=== PATIENT | male | born 1970 | race Caucasian/White ===

== ENCOUNTER 2017-08-18 16:14 | Emergency (ER) | payer BC, OTHER ==
[~2017-08-18] VITALS: Ht 172.7 cm; Wt 95.0 kg
[2017-08-18 16:19] VITALS: Ht 172.7 cm; Wt 95.0 kg
[2017-08-18] MEDS ORDERED: MAGNESIUM SULFATE 2 GM, MULTIVITAMINS 10 ML, THIAMINE 100 MG, FOLIC ACID 1 MG in SOD CH... IV STA (16:38)
[2017-08-18 17:36] LABS: BASOPHILS % 0.8 % (0.0-2.0); EOSINOPHILS % 0.8 % (0.0-7.0); HEMATOCRIT 44.8 % (42.0-52.0); LYMPHOCYTES % 38.3 % (15.0-51.0); MEAN CORPUSCULAR HEMOGLOBIN 30.1 pg (29.0-33.0); MEAN CORPUSCULAR HGB CONC 33.5 g/dl (32.0-37.0); MEAN PLATELET VOLUME 9.9 fl (7.4-10.4); MONOCYTE # 0.3 10^3/ul (0.3-0.9); MONOCYTES % 5.5 % (0.0-11.0); NEUTROPHIL # 2.9 10^3/ul (1.6-7.5); NEUTROPHILS % 54.4 % (39.0-77.0); PLATELET COUNT 243 10^3/UL (140-415); RED BLOOD COUNT 4.98 10^6/ul (4.70-6.10); RED CELL DISTRIBUTION WIDTH 12.7 % (11.5-14.5); WHITE BLOOD COUNT 5.3 10^3/ul (4.8-10.8)
[2017-08-18 17:42] LABS: ADD UMIC YES; UR ASCORBIC ACID NEGATIVE (NEGATIVE); UR BILIRUBIN (Dip) NEGATIVE (NEGATIVE); UR BLOOD (Dip) 1+ mg/dL (NEGATIVE); UR CLARITY CLEAR (CLEAR); UR COLOR STRAW (YELLOW); UR GLUCOSE (Dip) NEGATIVE (NEGATIVE); UR KETONES (Dip) NEGATIVE (NEGATIVE); UR LEUKOCYTE ESTERASE (Dip) NEGATIVE Leu/ul (NEGATIVE); UR NITRITE (Dip) NEGATIVE (NEGATIVE); UR RBC 0 /HPF (0-5); UR SPECIFIC GRAVITY (Dip) 1.004 (1.003-1.030); UR TOTAL PROTEIN (Dip) NEGATIVE (NEGATIVE); UR UROBILINOGEN (Dip) NEGATIVE (NEGATIVE)
--- NOTE | 2017-08-18 17:55 | ERD ---
ER Documentation Chief Complaint Chief Complaint BIBA FOR ALCOHOL INTOXICATION HPI This is a 47-year-old male that was brought into the emergency department for alcohol intoxication. The patient stated over the past 24 hours he has been consuming a significant amount of alcohol and does have a history of alcohol abuse. He states he is going through significant amount of stress right now he is in the process of a divorce. He denies any recent remote blunt or penetrating head chest or abdominal trauma. He denies headache. He denies changes in vision. He denies any hemoptysis hematemesis or melanotic stools. He denies any suicidal homicidal thoughts or ideations. ROS All systems reviewed and are negative except as per history of present illness. Allergies Allergies: Coded Allergies: No Known Allergy (Verified , 07/08/09) PMhx/Soc History of Surgery: No Anesthesia Reaction: No Hx Neurological Disorder: No Hx Respiratory Disorders: No Hx Cardiac Disorders: No Hx Psychiatric Problems: No Hx Miscellaneous Medical Probl: No Hx Alcohol Use: Yes Hx Substance Use: No Hx Tobacco Use: No Smoking Status: Never smoker Physical Exam Vitals Vital Signs Date Time Temp Pulse Resp B/P Pulse Ox O2 Delivery O2 Flow Rate FiO2 08/18/17 16:19 98.9 100 16 150/80 98 Physical Exam Constitutional:Well-developed. Well-nourished. HEENT:Normocephalic. Atraumatic.Pupils were equal round reactive to light. Moist mucous membranes.No tonsillar exudates. Neck: No nuchal rigidity. No lymphadenopathy. No posterior cervical spine tenderness or step-offs. Respiratory: Not using accessory muscles of respiration.Lungs were clear to auscultation bilaterally. No rhonchi. No rales. No wheezing. Cardiovascular: Regular rate regular rhythm.No murmurs. No rubs were appreciated.S1, S2 normal. Distal pulses are palpable 2+ bilaterally. GI: Abdomen was soft. Nontender. Non Distended. No pulsatile abdominal masses or bruits. No rebound. No guarding. Bowel sounds were present and normal. Muscle skeletal: Full range of motion of both the upper and lower extremities bilaterally.Normal muscle tone.No assymetrical calf tenderness or swelling. Skin: No petechia, no purpura. No lesions on the palms or the soles of the feet. No maculopapular rash. NEURO: Patient was alert, awake, orientated x3.No facial droop. Gait observed and normal with no ataxia.Speech is slurred and patient smelled of alcohol. No focal neurological deficits. Result Diagram: 08/18/17 1700 08/18/17 170 Results 24 hrs Laboratory Tests Test 08/18/17 17:00 White Blood Count 5.310^3/ul Red Blood Count 4.9810^6/ul Hemoglobin 15.0g/dl Hematocrit 44.8% Mean Corpuscular Volume 90.0fl Mean Corpuscular Hemoglobin 30.1pg Mean Corpuscular Hemoglobin Concent 33.5g/dl Red Cell Distribution Width 12.7% Platelet Count 32492^3/UL Mean Platelet Volume 9.9fl Neutrophils % 54.4% Lymphocytes % 38.3% Monocytes % 5.5% Eosinophils % 0.8% Basophils % 0.8% Nucleated Red Blood Cells % 0.0/100WBC Neutrophils # 2.910^3/ul Lymphocytes # 2.010^3/ul Monocytes # 0.310^3/ul Eosinophils # 0.010^3/ul Basophils # 0.010^3/ul Nucleated Red Blood Cells # 0.010^3/ul Urine Color STRAW Urine Clarity CLEAR Urine pH 6.[address] [place] [address] 1.004 Urine Ketones NEGATIVEmg/dL Urine Nitrite NEGATIVEmg/dL Urine Bilirubin NEGATIVEmg/dL Urine Urobilinogen NEGATIVEmg/dL Urine Leukocyte Esterase NEGATIVELeu/ul Urine Microscopic RBC 0/HPF Urine Microscopic WBC 0/HPF Urine Hemoglobin 1+mg/dL Urine Glucose NEGATIVEmg/dL Urine Total Protein NEGATIVEmg/dl Sodium Level 148mmol/L Potassium Level 3.9mmol/L Chloride Level 109mmol/L Carbon Dioxide Level 23mmol/L Anion Gap 20 Blood Urea Nitrogen 9mg/dl Creatinine 0.75mg/dl Glucose Level 102mg/dl Calcium Level 9.0mg/dl Total Bilirubin 0.1mg/dl Direct Bilirubin 0.00mg/dl Indirect Bilirubin 0.1mg/dl Aspartate Amino Transf (AST/SGOT) 76IU/L Alanine Aminotransferase (ALT/SGPT) 66IU/L Alkaline Phosphatase 125IU/L Total Protein 7.8g/dl Albumin 4.5g/dl Globulin 3.30g/dl Albumin/Globulin Ratio 1.36 Salicylates Level < 1.0mg/dl Urine Opiates Screen Negative Acetaminophen Level < 10.0ug/ml Urine Barbiturates Negative Urine Amphetamines Screen POSITIVE Urine Benzodiazepines Screen Negative Urine Cocaine Screen Negative Urine Cannabinoids Negative Ethyl Alcohol Level 375.0mg/dl Current Medications Medications (Trade) Dose Ordered Sig/Abhi Route PRN Reason Start Time Stop Time Status Last Admin Dose Admin Magnesium Sulfate/ Multivitamins/ Thiamine HCl/ Folic Acid/Sodium Chloride (Magnesium Sulfate/Mvi Adult/ Vitamin B1/Folic Acid/NS) 1,015.2 ml @ 500 mls/ hr Q2H2M STAT IV 08/18/17 16:38 08/18/17 18:39 DC 08/18/17 17:39 Lorazepam (Ativan) 1 mg ONCE ONCE IV 08/18/17 19:00 08/18/17 19:01 DC 08/18/17 18:49 Procedures/MDM This patient presented to the emergency department with acute alcohol intoxication. IV access was essentially nursing staff and the patient received a banana bag replenish thiamine and multivitamin and folic acid. Observation Note: Time: 6 hours Family Hx: No Hypertension Evaluation: Multiple exams showed improving symptoms and no evidence of any delirium tremors. His serum ethanol had been elevated but he remained in the emergency department until clinical sobriety. His stroke scale was also positive for amphetamines. During his observation stay the patient did have an episode where he became very belligerent and verbal de-escalation was unable to calm the patient down. Therefore he received IV Ativan. Upon clinical sobriety tree the patient denied any suicidal homicidal thoughts or ideations Departure Diagnosis: Primary Impression: Alcoholic intoxication Complication of substance-induced condition: uncomplicated Qualified Code: F10.920 - Alcoholic intoxication without complication Additional Impression: Amphetamine abuse Condition: ESVIN Cintron Aug 18, 2017 17:55
[2017-08-18 18:01] LABS: ALANINE AMINOTRANSFERASE 66 IU/L (13-69); ALBUMIN 4.5 g/dl (3.3-4.9); ALBUMIN/GLOBULIN RATIO 1.36; ALKALINE PHOSPHATASE 125 IU/L (42-121); ANION GAP 20 (8-16); ASPARTATE AMINO TRANSFERASE 76 IU/L (15-46); BILIRUBIN,INDIRECT 0.1 mg/dl (0-1.1); BILIRUBIN,TOTAL 0.1 mg/dl (0.2-1.3); BLOOD UREA NITROGEN 9 mg/dl (7-20); CARBON DIOXIDE 23 mmol/L (21-31); CHLORIDE 109 mmol/L (97-110); CREATININE 0.75 mg/dl (0.61-1.24); GLUCOSE 102 mg/dl (70-220); POTASSIUM 3.9 mmol/L (3.5-5.1); SODIUM 148 mmol/L (135-144); TOTAL PROTEIN 7.8 g/dl (6.1-8.1)
[2017-08-18 18:08] LABS: ACETAMINOPHEN < 10.0 ug/ml (10.0-30.0); SALICYLATE < 1.0 mg/dl (5.0-30.0)
[2017-08-18] MEDS ORDERED: LORAZEPAM 2 MG INJ IV ONE (19:00)
[2017-08-18 19:30] LABS: BARBITURATES Negative (NEGATIVE); BENZODIAZEPINES Negative (NEGATIVE); CANNABINOIDS Negative (NEGATIVE); COCAINE Negative (NEGATIVE); OPIATES Negative (NEGATIVE)
[2017-08-18 20:01] LABS: INR 0.88; PT RATIO 0.9
[2017-08-18 20:33] LABS: PARTIAL THROMBOPLASTIN TIME 25.8 Sec (25.0-35.0)
[2017-08-18 23:00] VITALS: BP 119/69; PULSE 82; RESP 16; TEMP 97.6
== END 2017-08-19 03:16 | disposition home or self-care (01) ==
LOC: E/R 16:14
DX: F10.120 Alcohol abuse with intoxication, uncomplicated (principal); F15.10 Other stimulant abuse, uncomplicated; R07.9 Chest pain, unspecified
CPT/HCPCS: 80053; 80306; 80307; 81001; 85025; 85610; 85730; 96365; 96366; 96375; J2060; J3411; J3475; J7030; Z7502; Z7610

== ENCOUNTER 2017-08-30 11:10 | Emergency (ER) | END 2017-08-30 15:06 | disposition home or self-care (01) ==

== ENCOUNTER 2018-05-09 14:51 | Emergency (ER) | END 2018-05-09 17:41 | disposition home or self-care (01) ==

== ENCOUNTER 2018-11-30 15:09 | Emergency (ER) | payer OTHER ==
[~2018-11-30] VITALS: Wt 80.0 kg
[~2018-11-30 15:09] MED LIST: CYCL10TA7 PO; MED4DP PO; NAPR-985 PO
[2018-11-30 15:11] VITALS: BP 122/77; PULSE 77; RESP 18
[2018-11-30] MEDS ORDERED: HYDROCODONE/APAP (5/325) TAB PO ONE (16:30)
--- NOTE | 2018-11-30 16:36 | ERD ---
ER Documentation Chief Complaint Chief Complaint LEFT ANKLE PAIN HPI 48-year-old male who presents to the emergency room complaining of left lower leg and ankle pain status post slipping down 2-3 stairs 2 days ago. States he twisted his ankle while he was falling down the stairs. Left foot visibly swollen, pain 8 out of 10, patient unable to bear weight. ROS All systems reviewed and are negative except as per history of present illness. Medications Home Meds Active Scripts Naproxen* (Naprosyn*) 500 Mg Tablet, 500 MG PO BID PRN for PAIN AND/OR INFLAMMATION, #30 TAB Prov:RUTH ANN BEASLEY NP 11/30/18 Cyclobenzaprine Hcl* (Cyclobenzaprine Hcl*) 10 Mg Tablet, 10 MG PO TID, #15 TAB Prov:TONI HERRING DO 05/09/18 Cyclobenzaprine Hcl* (Cyclobenzaprine Hcl*) 10 Mg Tablet, 10 MG PO TID, #15 TAB Prov:RAHUL YANES PA-C 08/30/17 Naproxen* (Naprosyn*) 500 Mg Tablet, 500 MG PO BID PRN for PAIN AND/OR INFLAMMATION, #20 TAB Prov:RAHUL YANES PA-C 08/30/17 Methylprednisolone* (Medrol* DOSE PACK) 4 Mg/Dose-Pack Tab.ds.pk, 4 MG PO . DIRECTED, #1 PACKET Prov:RAHUL YANES PA-C 08/30/17 Allergies Allergies: Coded Allergies: No Known Allergy (Verified , 05/09/18) PMhx/Soc History of Surgery: No Anesthesia Reaction: No Hx Neurological Disorder: No Hx Respiratory Disorders: No Hx Cardiac Disorders: No Hx Psychiatric Problems: No Hx Miscellaneous Medical Probl: No Hx Alcohol Use: Yes (12beer/4pint vodka daily ) Hx Substance Use: No Hx Tobacco Use: No Smoking Status: Never smoker Physical Exam Vitals Vital Signs Date Temp Pulse Resp B/P (MAP) Pulse Ox O2 O2 Flow FiO2 Time Delivery Rate 11/30/18 98.2 77 18 122/77 99 15:11 (92) Physical Exam Const: No acute distress Head: Atraumatic Eyes: Normal Conjunctiva ENT: Normal External Ears, Nose and Mouth. Neck: Full range of motion. No meningismus. Resp: Clear to auscultation bilaterally Cardio: Regular rate and rhythm, no murmurs Abd: Soft, non tender, non distended. Normal bowel sounds Skin: No petechiae or rashes Back: No midline or flank tenderness Ext: No cyanosis, or edema. LLE: swelling and tenderness bilaterally just superior to ankle, +medial and lateral malleolar tenderness, bruising and swelling at toes, +csm, ltd flexion/extension, no pain at 5th metatarsal. No pain or tenderness at knee or hip. Neur: Awake and alert Psych: Normal Mood and Affect Results 24 hrs Current Medications Medications Dose Sig/Abhi Start Time Status Last (Trade) Ordered Route PRN Stop Time Admin Dose Reason Admin 1 tab ONCE ONCE 11/30/18 DC 11/30/18 Acetaminophen PO 16:30 11/30/18 16:39 / 16:31 Hydrocodone Bitart (Egan (3/806)) Procedures/MDM 48-year-old male who presents to the emergency room complaining of left lower leg and ankle pain status post slipping down 2-3 stairs 2 days ago. ED COURSE: The patient was stable throughout ED course. I kept the patient and family informed of diagnostic imaging results throughout the ED course. DIAGNOSTIC IMAGING: Left Foot: Negative for fracture or dislocation Left Tib/Fib: There is a comminuted oblique distal fibular diaphyseal fracture. The distal fragments are displaced laterally by 3 mm with overlying soft tissue swelling. Read by radiologist Dr. Arzate. PROCEDURES: Left lower leg splint Splint Assessment: Neurovascularly intact post splint placement with good fit. MEDICATIONS GIVEN: Egan 5mg Patient tolerated medication well with no adverse reactions. Patient reported improvement in pain. Patient's extremity symptoms have stabilized while they have been evaluated in the department and are appropriate for outpatient follow up. No evidence of compartment syndrome, neurologic injury, vascular injury, open joint, open fracture, tendon laceration, or foreign body. Patient provided with radiology report, cd, and ortho referrals. Patient instructed on RICE and red flag symptoms to seek emergent medical treatment Departure Condition: Stable Referrals: [facility] Additional Instructions: Thank you very much for allowing us to participate in your care. Your health and safety is our top priority at [facility]. Call your primary care doctor TOMORROW for an appointment during the next 2-4 days and bring all the information and medications prescribed. Have prescriptions filled and follow precisely the directions on the label. If the symptoms get worse and your provider is unavailable, return to the Emergency Department immediately. RUTH ANN BEASLEY NP Nov 30, 2018 16:36
[2018-11-30] MEDS ORDERED: NAPR-985 PO (17:51)
== END 2018-11-30 18:15 | disposition home or self-care (01) ==
LOC: FTE 15:09
DX: S82.432A Displaced oblique fracture of shaft of left fibula, initial encounter for closed fracture (principal); W10.9XXA Fall (on) (from) unspecified stairs and steps, initial encounter; Y92.9 Unspecified place or not applicable
CPT/HCPCS: 29515; 73590; 73630; Z7502; Z7610